=== PATIENT | female | born 1970 | race Caucasian/White ===

== ENCOUNTER → 2017-09-11 | Outpatient (CLI) | payer MEDICAID, OTHER ==
[2016-10-10 12:21] VITALS: BP 121/72
[2017-09-11 11:13] LABS: BASOPHILS # (AUTO) 0.1 X10^3/uL (0.0-0.1); BASOPHILS % (AUTO) 1.3 % (0.2-1.0); EOSINOPHILS # (AUTO) 0.3 x10^3/uL (0.0-0.2); EOSINOPHILS % (AUTO) 3.6 % (0.9-2.9); HEMATOCRIT 44.3 % (36.0-47.0); HEMOGLOBIN 15.7 g/dL (12.0-16.0); LYMPHOCYTES # (AUTO) 2.2 X10^3/uL (1.3-2.9); LYMPHOCYTES % (AUTO) 25.1 % (21.0-51.0); MEAN CORPUSCULAR HEMOGLOBIN 32.9 pg (27.0-34.0); MEAN CORPUSCULAR HGB CONC 35.3 g/dL (33.0-35.0); MEAN CORPUSCULAR VOLUME 93.1 fL (80.0-100.0); MEAN PLATELET VOLUME 9.5 fL (7.4-11.0); MONOCYTES # (AUTO) 0.7 x10^3/uL (0.3-0.8); MONOCYTES % (AUTO) 8.1 % (0.0-13.0); NEUTROPHILS # (AUTO) 5.4 x10^3/uL (2.2-4.8); NEUTROPHILS % (AUTO) 61.9 % (42.0-75.0); PLATELET COUNT 218 X10^3/uL (150.0-450.0); RED BLOOD COUNT 4.76 X10^6/uL (3.5-5.4); RED CELL DISTRIBUTION WIDTH 14.9 % (11.6-16.5); WHITE BLOOD COUNT 8.7 X10^3/uL (3.6-10.0)
[2017-09-11 11:22] LABS: ALANINE AMINOTRANSFERASE 33 Units/L (12-78); ALBUMIN 3.8 g/dL (3.4-5.0); ALKALINE PHOSPHATASE 98 Units/L (46-116); ASPARTATE AMINO TRANSFERASE 25 Units/L (15-37); BLOOD UREA NITROGEN 8 mg/dL (7-18); CALCIUM 9.5 mg/dL (8.5-10.1); CARBON DIOXIDE 26.9 mmol/L (21-32); CHLORIDE 105 mmol/L (98-107); COR NA(FOR HYPERGLY) 140 mmol/L (136-145); CREATININE 0.95 mg/dL (0.55-1.02); SODIUM 140 mmol/L (136-145); TOTAL PROTEIN 7.6 g/dL (6.4-8.2); eGFR BLACK RACES > 60 (>60); eGFR NON BLACK RACES > 60 (>60)
[2017-09-11 11:39] LABS: PLATELET MORPHOLOGY COMMENT NORMAL (NORMAL)
--- NOTE | 2017-09-11 12:32 | US ---
HISTORY: RUQ pain. Study: Right upper quadrant abdominal ultrasound Comparison: No recent priors. Technique: Multiple anderson scale and color flow Doppler images of the right upper quadrant were obtaine d. Findings: The liver is heterogeneous and echogenic in appearance. No dominant intraparenchymal mass or intrahe patic biliary ductal dilatation can be observed. There is diffuse luminal gallbladder sludge without gallstones appreciated on this exam. The common bile duct is unremarkable measuring 6 mm. No perich olecystic fluid or gallbladder wall thickening can be observed. The CBD measures within normal limits . The right kidney appears normal in size without focal parenchymal mass or nephrolithiasis. The rig ht kidney measurers 12 x 5 x 5 cm. No hydronephrosis or perirenal fluid can be observed. The pancre atic head and body are unremarkable. The pancreatic tail is largely obscured by overlying bowel gas. IMPRESSION: Liver is heterogeneous and echogenic in appearance. Please correlate with LFTs. Gallbladder sludge without gallstones. Nuclear medicine HIDA imaging could be considered to exclude c hronic cholecystitis in this setting, as clinically indicated. No other RUQ sonographic abnormalities are observed. No ascites is seen. Reported By:
== END ==
LOC: RAD 10:12
PROVIDERS: ATTEND Internal Medicine
DX: R10.11 Right upper quadrant pain (principal); R50.9 Fever, unspecified; R11.2 Nausea with vomiting, unspecified
CPT/HCPCS: 36415; 76705; 80053; 85025

== ENCOUNTER → 2017-10-01 | Outpatient (CLI) | payer OTHER ==
[2016-10-10 12:21] VITALS: BP 121/72
[2017-10-01 13:26] LABS: ALANINE AMINOTRANSFERASE 31 Units/L (12-78); ALKALINE PHOSPHATASE 103 Units/L (46-116); ASPARTATE AMINO TRANSFERASE 17 Units/L (15-37); BILIRUBIN,DIRECT 0.07 mg/dL (0-0.2); BLOOD UREA NITROGEN 10 mg/dL (7-18); CALCIUM 9.6 mg/dL (8.5-10.1); CARBON DIOXIDE 25.9 mmol/L (21-32); CHLORIDE 104 mmol/L (98-107); COR NA(FOR HYPERGLY) 139 mmol/L (136-145); CREATININE 1.07 mg/dL (0.55-1.02); SODIUM 139 mmol/L (136-145); TOTAL PROTEIN 7.8 g/dL (6.4-8.2); eGFR BLACK RACES > 60 (>60); eGFR NON BLACK RACES 58 (>60)
== END ==
LOC: LAB 12:59
PROVIDERS: ATTEND Surgery
DX: K76.0 Fatty (change of) liver, not elsewhere classified (principal); R10.11 Right upper quadrant pain
CPT/HCPCS: 36415; 80048; 80076

== ENCOUNTER 2018-05-14 12:22 | Observation (INO) ==
[2018-05-14] MEDS ORDERED: NS 1/2 1000 ML IV 1,000 ML IV ONE (16:15)
[2018-05-14] MEDS: TUSSIONEX PENNKINETIC SUSP PO PRN (16:18)
[2018-05-14] MEDS: LEVAQUIN PREMIX IV 750 MG 750 MG/150 ML BAG IV SCH (16:18)
[2018-05-14] MEDS: NS 1/2 1000 ML IV 1,000 ML IV SCH (16:18)
[2018-05-14 16:41] LABS: BASOPHILS # (AUTO) 0.1 X10^3/uL (0.0-0.1); BASOPHILS % (AUTO) 0.9 % (0.2-1.0); EOSINOPHILS # (AUTO) 0.2 x10^3/uL (0.0-0.2); EOSINOPHILS % (AUTO) 2.3 % (0.9-2.9); HEMATOCRIT 44.5 % (36.0-47.0); HEMOGLOBIN 15.5 g/dL (12.0-16.0); LYMPHOCYTES % (AUTO) 24.2 % (21.0-51.0); MEAN CORPUSCULAR HGB CONC 34.8 g/dL (33.0-35.0); MEAN CORPUSCULAR VOLUME 91.9 fL (80.0-100.0); MEAN PLATELET VOLUME 9.5 fL (7.4-11.0); MONOCYTES # (AUTO) 0.8 x10^3/uL (0.3-0.8); MONOCYTES % (AUTO) 9.6 % (0.0-13.0); NEUTROPHILS # (AUTO) 5.3 x10^3/uL (2.2-4.8); PLATELET COUNT 264 X10^3/uL (150.0-450.0); RED BLOOD COUNT 4.84 X10^6/uL (3.5-5.4); RED CELL DISTRIBUTION WIDTH 13.7 % (11.6-16.5); WHITE BLOOD COUNT 8.4 X10^3/uL (3.6-10.0)
[2018-05-14 16:48] LABS: ALANINE AMINOTRANSFERASE 89 Units/L (12-78); ALBUMIN 4.2 g/dL (3.4-5.0); ALKALINE PHOSPHATASE 81 Units/L (46-116); ASPARTATE AMINO TRANSFERASE 93 Units/L (15-37); BLOOD UREA NITROGEN 14 mg/dL (7-18); CALCIUM 9.9 mg/dL (8.5-10.1); CARBON DIOXIDE 22.1 mmol/L (21-32); CHLORIDE 105 mmol/L (98-107); COR NA(FOR HYPERGLY) 141 mmol/L (136-145); CREATININE 1.23 mg/dL (0.55-1.02); SODIUM 140 mmol/L (136-145); eGFR NON BLACK RACES 50 (>60)
--- NOTE | 2018-05-14 16:51 | RAD ---
HISTORY: Pneumonia. Study: PA and lateral chest Comparison: 01/08/2018 Findings: The lungs are clear. The heart size is normal. Very minimal thoracic spondylosis is noted. IMPRESSION: 1. No radiographic evidence of acute cardiopulmonary disease or significant change is noted when co mpared to the prior examination. Reported By:
[2018-05-14] MEDS ORDERED: SALINE 3% 15 ML NEB TX ONE (17:09)
[2018-05-14] MEDS ORDERED: STERILE WATER IRRIGATION IR ONE (18:36)
[2018-05-14] MEDS: DIFLUCAN PO SCH (18:53)
[2018-05-14] MEDS ORDERED: NS 250 ML IV 250 ML IV ONE (20:49)
[2018-05-14] MEDS: DUONEB 0.5 MG/3 MG NEB SCH (21:01)
[2018-05-14] MEDS: NORVASC TAB 5 MG PO SCH (21:23)
[2018-05-14] MEDS: FORTAZ or TAZICEF VIAL INJ IVP SCH (21:23)
[2018-05-15] MEDS: DUONEB 0.5 MG/3 MG NEB SCH ×6 (01:00→20:03)
[2018-05-15] MEDS: FORTAZ or TAZICEF VIAL INJ IVP SCH ×4 (03:33→21:05)
[2018-05-15] MEDS ORDERED: NS 100 ML IV 100 ML IV ONE (04:53)
[2018-05-15] MEDS: TUSSIONEX PENNKINETIC SUSP PO PRN (05:06)
[2018-05-15 05:19] LABS: BASOPHILS # (AUTO) 0.1 X10^3/uL (0.0-0.1); BASOPHILS % (AUTO) 1.1 % (0.2-1.0); EOSINOPHILS # (AUTO) 0.2 x10^3/uL (0.0-0.2); EOSINOPHILS % (AUTO) 2.8 % (0.9-2.9); HEMATOCRIT 39.1 % (36.0-47.0); LYMPHOCYTES # (AUTO) 2.1 X10^3/uL (1.3-2.9); LYMPHOCYTES % (AUTO) 35.7 % (21.0-51.0); MEAN CORPUSCULAR HEMOGLOBIN 31.6 pg (27.0-34.0); MEAN CORPUSCULAR HGB CONC 34.1 g/dL (33.0-35.0); MEAN CORPUSCULAR VOLUME 92.6 fL (80.0-100.0); MEAN PLATELET VOLUME 9.3 fL (7.4-11.0); MONOCYTES # (AUTO) 0.7 x10^3/uL (0.3-0.8); NEUTROPHILS # (AUTO) 2.8 x10^3/uL (2.2-4.8); NEUTROPHILS % (AUTO) 48.4 % (42.0-75.0); PLATELET COUNT 204 X10^3/uL (150.0-450.0); RED BLOOD COUNT 4.23 X10^6/uL (3.5-5.4); RED CELL DISTRIBUTION WIDTH 14.3 % (11.6-16.5); WHITE BLOOD COUNT 5.8 X10^3/uL (3.6-10.0)
[2018-05-15 05:37] LABS: ALANINE AMINOTRANSFERASE 68 Units/L (12-78); ALBUMIN 3.4 g/dL (3.4-5.0); ALKALINE PHOSPHATASE 65 Units/L (46-116); ASPARTATE AMINO TRANSFERASE 59 Units/L (15-37); BLOOD UREA NITROGEN 11 mg/dL (7-18); CALCIUM 9.2 mg/dL (8.5-10.1); CARBON DIOXIDE 26.3 mmol/L (21-32); CHLORIDE 104 mmol/L (98-107); COR NA(FOR HYPERGLY) 140 mmol/L (136-145); SODIUM 139 mmol/L (136-145); TOTAL PROTEIN 6.7 g/dL (6.4-8.2); eGFR NON BLACK RACES > 60 (>60)
[2018-05-15 06:04] LABS: HEMOGLOBIN 13.3 g/dL (12.0-16.0)
[2018-05-15 06:05] LABS: BAND NEUTROPHILS % 2 % (0-10); PLATELET MORPHOLOGY COMMENT NORMAL (NORMAL)
[2018-05-15] MEDS ORDERED: K-RIDER 10 MEQ/NS 100 ML 10 MEQ/100 ML BAG IV PRN (06:09)
[2018-05-15] MEDS ORDERED: POTASSIUM CHL 40 MEQ/NS 0.45% 500 ML IV PRN (06:09)
[2018-05-15] MEDS ORDERED: MICRO K EXTEN CAP 10 MEQ PO PRN (06:09)
[2018-05-15] MEDS ORDERED: KLOR-CON PO PRN (06:09)
[2018-05-15] MEDS ORDERED: POTASSIUM CHL 60 MEQ/NS 0.45% 500 ML IV PRN (06:09)
[2018-05-15] MEDS ORDERED: POTASSIUM CHLORIDE LIQ 20 MEQ UDC PO PRN (06:09)
[2018-05-15] MEDS ORDERED: MAGNESIUM SULFATE 1 GRAM/100 mL PREMIX 1 GM/100 ML BAG IV PRN (06:09)
[2018-05-15] MEDS ORDERED: K-DUR TAB 20 MEQ PO PRN (06:09)
[2018-05-15] MEDS: NS 1/2 1000 ML IV 1,000 ML IV SCH ×3 (06:14→21:05)
--- NOTE | 2018-05-15 06:25 | RAD ---
HISTORY: Pneumonia Study: Single view chest Comparison: 05/14/2018 Findings: Single view submitted. Lung volumes are reduced. There is minimal atelectasis or developing infiltrat e at the lateral left lung base. No effusion or pneumothorax identified. The cardiac and mediastinal contours are within normal limits. The soft tissues are unremarkable. IMPRESSION: 1. Low lung volumes with minimal atelectasis versus developing infiltrate at the left lung base. Radi ographic follow-up recommended. Reported By:
[2018-05-15] MEDS: LEVAQUIN PREMIX IV 750 MG 750 MG/150 ML BAG IV SCH (09:10)
[2018-05-15] MEDS: NORVASC TAB 5 MG PO SCH ×2 (09:10→20:38)
[2018-05-15] MEDS: DIFLUCAN PO SCH (09:10)
[2018-05-15] MEDS ORDERED: ATIVAN TAB 0.5 MG PO PRN (10:20)
[2018-05-15] MEDS ORDERED: PHENERGAN TAB 25 MG PO PRN (10:20)
--- NOTE | 2018-05-15 10:29 | DR.UPDATE ---
H&P Update History and Physical Update: WAS SEEN IN THE OFFICE TODAY. A H&P WAS COMPLETED PRIOR TO ADMISSION. PATIENT HAS BEEN SEEN AND EXAMINED WITH NO CHANGES NOTED TO H&P. Changes noted: NO Yes with the following:
[2018-05-15] MEDS ORDERED: LIOTHYRONINE SODIUM 10 MCG PO SCH (10:30)
[2018-05-15] MEDS ORDERED: D3 PO SCH (10:30)
[2018-05-15] MEDS ORDERED: LIOTHYRONINE SODIUM 5 MCG PO SCH (10:30)
[2018-05-15] MEDS ORDERED: PATIENT'S HOME MEDICATION (Aspirin 81 MG) PO SCH (10:30)
[2018-05-15] MEDS ORDERED: PATIENT'S HOME MEDICATION (Budesonide-Formoterol 2 PUFF) IN SCH (10:30)
[2018-05-15] MEDS ORDERED: PATIENT'S HOME MEDICATION (Fenofibrate [Fenofibrate 160 Mg] 160 MG) PO SCH (10:30)
[2018-05-15] MEDS ORDERED: RANEXA PO SCH (11:00)
[2018-05-15] MEDS: ASPIRIN EC 81 MG PO SCH (11:42)
[2018-05-15] MEDS: ALDACTONE TAB 25 MG PO SCH (11:42)
[2018-05-15] MEDS: NEURONTIN CAP 300 MG PO SCH ×2 (11:43→20:37)
[2018-05-15] MEDS: LOVENOX INJ 40 MG SYR SC SCH (11:43)
[2018-05-15] MEDS: MAGIC MOUTHWASH MT SCH ×4 (11:43→20:38)
[2018-05-15] MEDS: LOPRESSOR TAB 50 MG PO SCH ×2 (11:43→20:37)
[2018-05-15] MEDS: SYNTHROID 125 mcg TAB PO SCH (11:45)
[2018-05-15] MEDS: PROzac PO SCH (11:45)
[2018-05-15] MEDS: SYNTHROID 100 mcg TAB PO SCH (11:45)
[2018-05-15] MEDS: ZANTAC PO SCH ×2 (11:46→20:36)
[2018-05-15] MEDS: TRICOR TAB 160 MG PO SCH (11:46)
[2018-05-15] MEDS: NORCO 10/325 TAB PO PRN ×2 (11:55→20:43)
[2018-05-15] MEDS ORDERED: NS 1/2 1000 ML IV 1,000 ML IV ONE (13:49)
[2018-05-15 16:47] VITALS: BMI 34.1
[2018-05-15] MEDS ORDERED: NS 100 ML IV + SPIKE MINIBAG* 100 ML IV ONE (19:47)
[2018-05-15] MEDS: RANEXA PO SCH (20:36)
[2018-05-15] MEDS: FOLIC ACID TAB 1 MG PO SCH (20:37)
[2018-05-15] MEDS: CRESTOR TAB 10 MG PO SCH (20:38)
[2018-05-15] MEDS: SINGULAIR TAB 10 MG PO SCH (20:38)
[2018-05-15] MEDS ORDERED: NORTRIPTYLINE 10 MG PO SCH (21:00)
[2018-05-15] MEDS ORDERED: TRAZODONE HCL 100 MG PO SCH (21:00)
[2018-05-16] MEDS ORDERED: NS 1/2 1000 ML IV 1,000 ML IV ONE ×2 (00:37→14:37)
[2018-05-16] MEDS: NS 1/2 1000 ML IV 1,000 ML IV SCH ×2 (00:42→15:00)
[2018-05-16] MEDS: DUONEB 0.5 MG/3 MG NEB SCH ×6 (00:46→20:06)
[2018-05-16] MEDS: NORCO 10/325 TAB PO PRN ×3 (03:31→22:11)
[2018-05-16] MEDS ORDERED: NS 100 ML IV + SPIKE MINIBAG* 100 ML IV ONE ×3 (05:06→20:22)
[2018-05-16] MEDS: FORTAZ or TAZICEF VIAL INJ IVP SCH ×3 (05:21→21:00)
[2018-05-16 05:37] LABS: BASOPHILS # (AUTO) 0.1 X10^3/uL (0.0-0.1); BASOPHILS % (AUTO) 1.3 % (0.2-1.0); EOSINOPHILS # (AUTO) 0.2 x10^3/uL (0.0-0.2); EOSINOPHILS % (AUTO) 4.5 % (0.9-2.9); HEMATOCRIT 38.8 % (36.0-47.0); HEMOGLOBIN 13.4 g/dL (12.0-16.0); LYMPHOCYTES # (AUTO) 2.4 X10^3/uL (1.3-2.9); LYMPHOCYTES % (AUTO) 44.5 % (21.0-51.0); MEAN CORPUSCULAR HEMOGLOBIN 32.1 pg (27.0-34.0); MEAN CORPUSCULAR HGB CONC 34.6 g/dL (33.0-35.0); MEAN CORPUSCULAR VOLUME 92.7 fL (80.0-100.0); MEAN PLATELET VOLUME 9.2 fL (7.4-11.0); MONOCYTES # (AUTO) 0.5 x10^3/uL (0.3-0.8); NEUTROPHILS # (AUTO) 2.2 x10^3/uL (2.2-4.8); NEUTROPHILS % (AUTO) 40.7 % (42.0-75.0); PLATELET COUNT 211 X10^3/uL (150.0-450.0); RED BLOOD COUNT 4.19 X10^6/uL (3.5-5.4); RED CELL DISTRIBUTION WIDTH 14.1 % (11.6-16.5); WHITE BLOOD COUNT 5.3 X10^3/uL (3.6-10.0)
[2018-05-16 05:42] LABS: ALANINE AMINOTRANSFERASE 71 Units/L (12-78); ALBUMIN 3.5 g/dL (3.4-5.0); ALKALINE PHOSPHATASE 69 Units/L (46-116); ASPARTATE AMINO TRANSFERASE 47 Units/L (15-37); BLOOD UREA NITROGEN 9 mg/dL (7-18); CALCIUM 9.1 mg/dL (8.5-10.1); CARBON DIOXIDE 24.7 mmol/L (21-32); CHLORIDE 104 mmol/L (98-107); COR NA(FOR HYPERGLY) 139 mmol/L (136-145); CREATININE 0.96 mg/dL (0.55-1.02); SODIUM 138 mmol/L (136-145); eGFR NON BLACK RACES > 60 (>60)
--- NOTE | 2018-05-16 06:29 | RAD ---
Chest, one view Indication: Pneumonia Comparison: 05/15/2018 Findings: The heart is normal in size. There are stable streaky opacities within the left lateral woody g base. The remainder of the lungs are clear. No significant pleural effusion or pneumothorax is iden tified. There is no acute osseous abnormality. Impression: Stable atelectasis versus infiltrate within the left lung base. Reported By:
[2018-05-16 06:45] LABS: BAND NEUTROPHILS % 2 % (0-10); METAMYELOCYTES % 2; PLATELET MORPHOLOGY COMMENT NORMAL (NORMAL)
[2018-05-16] MEDS ORDERED: SPIRONOLACTONE 25 MG PO SCH (09:00)
[2018-05-16] MEDS: LOVENOX INJ 40 MG SYR SC SCH (09:06)
[2018-05-16] MEDS: DIFLUCAN PO SCH (09:06)
[2018-05-16] MEDS: LEVAQUIN PREMIX IV 750 MG 750 MG/150 ML BAG IV SCH (09:06)
[2018-05-16] MEDS: NEURONTIN CAP 300 MG PO SCH ×2 (09:06→20:55)
[2018-05-16] MEDS: SYNTHROID 125 mcg TAB PO SCH (09:06)
[2018-05-16] MEDS: ASPIRIN EC 81 MG PO SCH (09:07)
[2018-05-16] MEDS: SYNTHROID 100 mcg TAB PO SCH (09:07)
[2018-05-16] MEDS: NORVASC TAB 5 MG PO SCH ×2 (09:07→20:56)
[2018-05-16] MEDS: LOPRESSOR TAB 50 MG PO SCH ×2 (09:07→20:56)
[2018-05-16] MEDS: ZANTAC PO SCH ×2 (09:07→20:56)
[2018-05-16] MEDS: HYDROCHLOROTHIAZIDE 25 MG TAB PO SCH (09:07)
[2018-05-16] MEDS: MAGIC MOUTHWASH MT SCH ×4 (09:08→21:01)
[2018-05-16] MEDS: TRICOR TAB 160 MG PO SCH (09:08)
[2018-05-16] MEDS: PROzac PO SCH (09:08)
[2018-05-16] MEDS: ALDACTONE TAB 25 MG PO SCH (09:08)
[2018-05-16] MEDS: VITAMIN D3 PO SCH (09:08)
[2018-05-16] MEDS: TUSSIONEX PENNKINETIC SUSP PO PRN (10:43)
[2018-05-16] MEDS: PULMICORT NEB TX 0.5 MG NEB SCH ×2 (11:00→20:06)
[2018-05-16] MEDS: RANEXA PO SCH ×2 (11:42→20:55)
[2018-05-16] MEDS: PREDNISONE TAB 20 MG PO SCH (12:52)
[2018-05-16] MEDS: SINGULAIR TAB 10 MG PO SCH (20:55)
[2018-05-16] MEDS: FOLIC ACID TAB 1 MG PO SCH (20:55)
[2018-05-16] MEDS: CRESTOR TAB 10 MG PO SCH (20:59)
[2018-05-17] MEDS ORDERED: NS 100 ML IV + SPIKE MINIBAG* 100 ML IV ONE (05:20)
[2018-05-17] MEDS: FORTAZ or TAZICEF VIAL INJ IVP SCH ×2 (05:31→13:21)
[2018-05-17 05:36] LABS: BASOPHILS % (AUTO) 0.5 % (0.2-1.0); EOSINOPHILS % (AUTO) 0.1 % (0.9-2.9); HEMOGLOBIN 13.9 g/dL (12.0-16.0); LYMPHOCYTES # (AUTO) 1.7 X10^3/uL (1.3-2.9); LYMPHOCYTES % (AUTO) 20.6 % (21.0-51.0); MEAN CORPUSCULAR HEMOGLOBIN 32.2 pg (27.0-34.0); MEAN CORPUSCULAR HGB CONC 34.8 g/dL (33.0-35.0); MEAN CORPUSCULAR VOLUME 92.6 fL (80.0-100.0); MEAN PLATELET VOLUME 9.7 fL (7.4-11.0); MONOCYTES # (AUTO) 0.7 x10^3/uL (0.3-0.8); NEUTROPHILS # (AUTO) 5.9 x10^3/uL (2.2-4.8); NEUTROPHILS % (AUTO) 70.8 % (42.0-75.0); PLATELET COUNT 226 X10^3/uL (150.0-450.0); RED BLOOD COUNT 4.32 X10^6/uL (3.5-5.4); WHITE BLOOD COUNT 8.4 X10^3/uL (3.6-10.0)
[2018-05-17 05:45] LABS: ALANINE AMINOTRANSFERASE 74 Units/L (12-78); ALBUMIN 3.7 g/dL (3.4-5.0); ALKALINE PHOSPHATASE 74 Units/L (46-116); ASPARTATE AMINO TRANSFERASE 44 Units/L (15-37); BLOOD UREA NITROGEN 12 mg/dL (7-18); CALCIUM 9.8 mg/dL (8.5-10.1); CARBON DIOXIDE 26.5 mmol/L (21-32); CHLORIDE 102 mmol/L (98-107); COR NA(FOR HYPERGLY) 139 mmol/L (136-145); SODIUM 138 mmol/L (136-145); TOTAL PROTEIN 7.4 g/dL (6.4-8.2); eGFR NON BLACK RACES > 60 (>60)
--- NOTE | 2018-05-17 06:23 | RAD ---
Chest, one view Indication: Shortness of breath Comparison: 05/16/2018 Findings: The heart is normal in size. Previously seen streaky opacities within the left lung base bryant ve resolved. No new focal infiltrate, significant effusion or pneumothorax is identified. There is no acute osseous abnormality. Impression: No acute cardiopulmonary abnormality. Reported By:
[2018-05-17] MEDS ORDERED: NS 1/2 1000 ML IV 0 ML IV ONE (06:25)
[2018-05-17] MEDS: NS 1/2 1000 ML IV 1,000 ML IV SCH ×3 (06:29→15:48)
[2018-05-17] MEDS: MAGIC MOUTHWASH MT SCH ×2 (08:35→13:21)
[2018-05-17] MEDS: VITAMIN D3 PO SCH (08:36)
[2018-05-17] MEDS: LEVAQUIN PREMIX IV 750 MG 750 MG/150 ML BAG IV SCH (08:36)
[2018-05-17] MEDS: TRICOR TAB 160 MG PO SCH (08:36)
[2018-05-17] MEDS: PROzac PO SCH (08:36)
[2018-05-17] MEDS: ZANTAC PO SCH (08:37)
[2018-05-17] MEDS: LOPRESSOR TAB 50 MG PO SCH (08:37)
[2018-05-17] MEDS: PREDNISONE TAB 20 MG PO SCH (08:38)
[2018-05-17] MEDS: SYNTHROID 100 mcg TAB PO SCH (08:38)
[2018-05-17] MEDS: DIFLUCAN PO SCH (08:38)
[2018-05-17] MEDS: SYNTHROID 125 mcg TAB PO SCH (08:38)
[2018-05-17] MEDS: NEURONTIN CAP 300 MG PO SCH (08:38)
[2018-05-17] MEDS: ASPIRIN EC 81 MG PO SCH (08:38)
[2018-05-17] MEDS: NORVASC TAB 5 MG PO SCH (08:38)
[2018-05-17] MEDS: ALDACTONE TAB 25 MG PO SCH (08:38)
[2018-05-17] MEDS: LOVENOX INJ 40 MG SYR SC SCH (08:39)
[2018-05-17] MEDS: HYDROCHLOROTHIAZIDE 25 MG TAB PO SCH (08:41)
[2018-05-17] MEDS: PULMICORT NEB TX 0.5 MG NEB SCH (08:46)
[2018-05-17] MEDS: TUSSIONEX PENNKINETIC SUSP PO PRN (08:46)
[2018-05-17] MEDS: DUONEB 0.5 MG/3 MG NEB SCH ×2 (08:46→12:06)
[2018-05-17] MEDS: RANEXA PO SCH (09:22)
[2018-05-17 12:03] VITALS: BP 164/81
[2018-05-17] MEDS ORDERED: NS 1/2 1000 ML IV 1,000 ML IV ONE (14:28)
[2018-05-17] MEDS: NORCO 10/325 TAB PO PRN (14:32)
[2018-05-17] MEDS ORDERED: FLUVIRIN IM ONE (15:35)
== END 2018-05-17 16:35 | disposition home or self-care (01) ==
LOC: MED/SURG
PROVIDERS: ADMIT Internal Medicine; ATTEND Internal Medicine
DX: E87.6 Hypokalemia; R50.9 Fever, unspecified; J18.0 Bronchopneumonia, unspecified organism; I10 Essential (primary) hypertension; K21.9 Gastro-esophageal reflux disease without esophagitis; J44.9 Chronic obstructive pulmonary disease, unspecified; R06.02 Shortness of breath; E78.5 Hyperlipidemia, unspecified
CPT/HCPCS: 36415; 71010; 71020; 71045; 71046; 80053; 83735; 85025; 87040; 87070; 87205; 90686; 94640; 94669; 94760; 96367; 96372; 96374; A4217; A4222; Q0169; G0378; J0713; J1650; J1956; J7050; J7512; J7620; J7626